=== PATIENT | female | born 2000 | race Caucasian/White ===

== ENCOUNTER 2022-06-21 10:43 | Outpatient (CLI) | payer SELFPAY ==
[2022-06-21 14:02] LABS: Hepatitis B Surface Antigen* Negative (Negative)
[2022-06-21 14:10] LABS: HIV 1/2/P24 Combo Screen* Negative (Negative)
[2022-06-21 14:19] LABS: Hepatitis C Virus Antibody* Negative (Negative)
[2022-06-21 18:35] LABS: Chlamydia DNA Amplified* NOT DETECTED (No Detected); GC DNA Amplified* NOT DETECTED (No Detected)
[2022-06-23 00:58] LABS: Rapid Plasma Reagin (RPR) Non Reactive (Non Reactive)
[2022-06-23 01:46] LABS: Varicella-Zoster Virus Ab, IgG 28.3 IV
== END 2022-06-21 10:44 | disposition home or self-care (01) ==
PROVIDERS: Visit Provider Advanced Practice Midwife
DX: Z34.91 Encounter for supervision of normal pregnancy, unspecified, first trimester (principal); Z3A.08 8 weeks gestation of pregnancy
CPT/HCPCS: 76817; 86592; 86703; 86762; 86787; 86803; 86850; 86900; 86901; 87086; 87186; 87340; 87491; 87591

== ENCOUNTER 2022-07-20 14:42 | Outpatient (CLI) | payer BC, SELFPAY | END 2022-07-20 14:43 | disposition home or self-care (01) | LOC: NFLDREF 14:42 | PROVIDERS: Visit Provider Registered Nurse | DX: Z13.9 Encounter for screening, unspecified (principal) | CPT/HCPCS: 87086 ==

== ENCOUNTER 2022-09-24 13:48 | Outpatient (CLI) | payer SELFPAY ==
--- NOTE | 2022-09-24 14:00 | CRLHL7_ITS ---
For Patients: As a result of the Century Cures Act, medical imaging exams and procedure reports are released immediately into your electronic medical record. You may view this report before your referring provider. If you have questions, please contact your health care provider. INDICATION: Evaluate anatomy. COMPARISON: 06/21/2022 TECHNIQUE: Real time park scale imaging of the fetus was performed as well as color Doppler analysis of the umbilical vessels. FINDINGS: Sonographic imaging demonstrates a single living intrauterine gestation. Fetus demonstrates a regular cardiac rate of 138 beats per minute. Fetus has a vertex position. The placenta lies anterior without evidence of placenta previa. The edge of the placenta is located 6.9 cm from the internal cervical os. Amniotic fluid volume appears normal. Single deepest vertical pocket: 4.9 cm. The cervix is closed and measures 3.8 cm in length. The composite ultrasound gestational age is calculated at 20 weeks 5 days with an estimated sonographic due date of 02/06/2023. The estimated weight is 392 grams which lies at the 61st %. The following biometric measurements were obtained: Biparietal diameter: 4.9 cm/20 weeks 6 days 53rd% Head circumference: 18.6 cm/21 weeks 0 days 52nd% Abdominal circumference: 15.6 cm/20 weeks 5 days 44th% Femur length: 3.6 cm/21 weeks 2 days 63rd% The HC/AC ratio measures: 1.20 range (1.06-1.25) On anatomic survey, there is a normal appearance of the cerebral ventricles, cavum septi pellucidi, cisterna magna and cerebellum. The nose, lips, and facial profile appear normal. The cervical, thoracic and lumbar spine are well visualized and appear normal. There is a normal four-chamber heart view and the left and right ventricular outflow tracts appear normal. The diaphragm and stomach appear normal. The kidneys and bladder also appear normal. There is a normal three-vessel cord and cord insertion site. The four extremities appear normal. IMPRESSION: Normal OB ultrasound exam with concordance of clinical and sonographic dating. No intrinsic abnormalities noted on anatomic survey. Dictated by Cedric Arias MD @ 09/25/2022 6:49:06 AM (Electronically Signed)
== END 2022-09-24 13:49 | disposition home or self-care (01) ==
LOC: US 13:48
PROVIDERS: Visit Provider Advanced Practice Midwife
DX: Z34.92 Encounter for supervision of normal pregnancy, unspecified, second trimester (principal); Z3A.20 20 weeks gestation of pregnancy
CPT/HCPCS: 76805

== ENCOUNTER 2023-01-10 13:23 | Outpatient (CLI) | payer SELFPAY ==
--- NOTE | 2023-01-10 14:25 | PC.SOCIAL ---
Left a message for pt. to call back and give resources on financial assistance and WIC.
[2023-01-11 12:42] LABS: Strep B DNA Probe NEGATIVE (Negative)
[2023-01-11 12:52] LABS: Strep B Pen/Amox Allergy No
== END 2023-01-10 13:24 | disposition home or self-care (01) ==
LOC: NFLDREF 13:24
PROVIDERS: Visit Provider Advanced Practice Midwife
DX: Z34.93 Encounter for supervision of normal pregnancy, unspecified, third trimester (principal); Z3A.36 36 weeks gestation of pregnancy
CPT/HCPCS: 86592; 87081; 87653

== ENCOUNTER 2023-01-14 09:22 | Outpatient (CLI) | payer BC, SELFPAY | END 2023-01-14 09:23 | disposition home or self-care (01) | PROVIDERS: Visit Provider Advanced Practice Midwife | DX: Z34.93 Encounter for supervision of normal pregnancy, unspecified, third trimester (principal); Z3A.36 36 weeks gestation of pregnancy | CPT/HCPCS: 80306 ==